=== PATIENT | male | born 2000 | race Caucasian/White ===

== ENCOUNTER → 2022-12-07 | Outpatient (CLI) | payer OTHER | LOC: M RAD 14:49 | PROVIDERS: ATTEND Physician Assistant | DX: R22.31 Localized swelling, mass and lump, right upper limb (principal) ==

== ENCOUNTER 2024-05-27 22:23 | Emergency (ER) | payer OTHER ==
[~2024-05-27] VITALS: Ht 182.9 cm; Wt 78.0 kg
[2024-05-28] MEDS: IBUPROFEN 600MG TAB PO ONE (00:11)
== END 2024-05-28 00:43 | disposition home or self-care (01) ==
LOC: M ED 22:23 → EDBD 22:23 → M ED 05-28 00:43
DX: S13.4XXA Sprain of ligaments of cervical spine, initial encounter (principal); S33.5XXA Sprain of ligaments of lumbar spine, initial encounter; M79.671 Pain in right foot; M25.561 Pain in right knee; V57.5XXA Driver of pick-up truck or van injured in collision with fixed or stationary object in traffic accident, initial encounter; Y92.411 Interstate highway as the place of occurrence of the external cause; Y93.89 Activity, other specified; Y99.9 Unspecified external cause status